=== PATIENT | male | born 1945 | race Caucasian/White ===

== ENCOUNTER 2022-12-09 20:57 | Emergency (ER) | payer MEDICARE ==
[~2022-12-09] VITALS: Ht 185.4 cm; Wt 205.0 kg
[2022-12-09] MEDS ORDERED: ONDANSETRON HCL 4MG/2ML INJ IV STA (21:39)
[2022-12-09] MEDS ORDERED: MORPHINE SULFATE 4 MG/ML CPJ (NOT FOR IM USE) IV STA (21:39)
[2022-12-09] MEDS ORDERED: SODIUM CHLORIDE 0.9% 1,000 ML IV ONE ×2 (21:45→23:15)
[2022-12-09 22:01] LABS: HEMATOCRIT. 43.8 % (42.0-52.0); HEMOGLOBIN. 14.7 g/dL (14.0-18.0); MEAN CORPUSCULAR HEMOGLOBIN 27.2 pg (28.0-32.0); MEAN CORPUSCULAR VOLUME 80.8 fL (80.0-94.0); MEAN PLATELET VOLUME 7.7 fl (7.4-10.4); PLATELET 323 x1000/uL (130-400); RED BLOOD CELL COUNT 5.42 mill/uL (4.7-6.1); RED CELL DISTRIBUTION WIDTH 14.8 % (11.6-14.6)
[2022-12-09 22:07] LABS: CHLORIDE 105 mEq/L (98-107)
[2022-12-09 22:27] LABS: PLATELET ESTIMATE NORMAL
[2022-12-09] MEDS ORDERED: VANCOMYCIN 1G PREMIX 200 ML IV ONE (23:15)
[2022-12-09] MEDS ORDERED: PIPERACILLIN/TAZ 3.375G PREMIX 50 ML IV ONE (23:15)
[2022-12-09 23:35] LABS: CLARITY URINE CLEAR (CLEAR); COLOR URINE YELLOW (YELLOW); KETONES URINE 2+ (NEGATIVE); LEUKOCYTE ESTERASE URINE NEGATIVE (NEGATIVE); NITRITE URINE NEGATIVE (NEGATIVE); OCCULT BLOOD URINE 1+ (NEGATIVE); PROTEIN URINE TRACE (NEGATIVE); SPECIFIC GRAVITY URINE 1.015 (1.005-1.030); UROBILINOGEN URINE 0.2 E.U./dL (0.2-1.0)
[2022-12-10] MEDS ORDERED: ONDANSETRON HCL 4MG/2ML INJ IV ONE
[2022-12-10] MEDS ORDERED: DILTIAZEM HCL 300MG CAPSULE SR 24HR PO ONE (00:15)
[2022-12-10 01:00] VITALS: BP 156/112
[2022-12-10] MEDS ORDERED: IBUP-2028 MT (01:13)
[2022-12-10] MEDS ORDERED: LEVO750T68 MT (01:13)
== END 2022-12-10 01:46 | disposition admitted as inpatient to this hospital (09) ==
LOC: ER 20:57
DX: R91.8 Other nonspecific abnormal finding of lung field (principal); N20.0 Calculus of kidney; I95.9 Hypotension, unspecified; Z20.822 Contact with and (suspected) exposure to COVID-19
CPT/HCPCS: 36415; 71045; 74176; 76705; 80053; 81003; 83605; 83690; 84484; 85025; 87040; 87086; 87426; 93005; 96361; 96365; 96375; 96376; 99285; C9803; J2270; J2405; J2543; J3370; J7030